=== PATIENT | male | born 1985 | race Two or more races ===

== ENCOUNTER 2017-03-04 23:31 | Emergency (ER) | payer SELFPAY ==
[2017-03-05] MEDS ORDERED: IBUPROFEN 600 MG TABLET PO ONE (00:13)
--- NOTE | 2017-03-05 00:47 | RADIOLOGY REPORT (SQ) ---
EXAM DESCRIPTION: CHEST PA/LAT CLINICAL HISTORY: 31 years, Male, cough and pain COMPARISON: None. NUMBER OF VIEWS: 2 LIMITATIONS: None. FINDINGS: Moderate airspace patchiness of the left lower lobe, normal lung volume, normal cardiac silhouette, and intact bony thorax. IMPRESSION: Moderate left lower lobar pneumonia. 2011 [employer]- All Rights Reserved
[2017-03-05] MEDS ORDERED: HYDROCODONE/ACETAMINOPHEN 5-325 MG (6 TAB/ER DISP) PO PRN (02:33)
[2017-03-05] MEDS ORDERED: DOXYCYCLINE HYCLATE 100 MG TABLET PO ONE (02:34)
[2017-03-05] MEDS ORDERED: HYDROCODONE/ACETAMINOPHEN 5-325 MG TABLET PO ONE (02:34)
--- NOTE | 2017-03-05 03:01 | ER Document Report ---
ED General - General Chief Complaint: Chest Wall Pain Stated Complaint: FLU LIKE SYMPTOMS Time Seen by Provider: 03/05/17 02:26 Notes: Patient is a 31-year-old male who comes emergency department for chief complaint of nonproductive cough, fever/chills, painful cough. He states he hurts over his right lower ribs when he coughs. He states that he has been sick for 2 weeks, had an upper respiratory virus, states that over the past 2 days he has worsened with his symptoms. No obvious sick contacts. He does not smoke, he does not take any daily medications, he denies any past medical history. TRAVEL OUTSIDE OF THE [place] IN LAST 30 DAYS: No - Related Data Allergies/Adverse Reactions: No Known Allergies Allergy (Unverified 03/05/17 03:04) Past Medical History - General Information source: Patient - Social History Smoking Status: Never Smoker Frequency of alcohol use: None Drug Abuse: None Lives with: Family Family History: Reviewed & Not Pertinent - Medical History Medical History: Negative Surgical Hx: Negative - Immunizations Immunizations up to date: Yes Hx Diphtheria, Pertussis, Tetanus Vaccination: Yes Review of Systems - Review of Systems Constitutional: See HPI EENT: See HPI Cardiovascular: No symptoms reported Respiratory: See HPI Gastrointestinal: No symptoms reported Genitourinary: No symptoms reported Male Genitourinary: No symptoms reported Musculoskeletal: See HPI Skin: No symptoms reported Hematologic/Lymphatic: No symptoms reported Neurological/Psychological: No symptoms reported Physical Exam - Vital signs Vitals: Temp Pulse Resp BP Pulse Ox 102.6 F H 111 H 22 H 147/98 H 96 03/05/17 00:10 03/05/17 00:10 03/05/17 00:10 03/05/17 00:10 03/05/17 00:10 Interpretation: Normal - General General appearance: Appears well, Alert In distress: None - Patient is alert and well-appearing except when he coughs he appears to be in some pain - HEENT Head: Normocephalic, Atraumatic Eyes: Normal Pupils: PERRL - Respiratory Respiratory status: No respiratory distress. No: Respiratory distress, Labored , Retractions, Tachypnea Chest status: Tender - Tender over the right anterior ribs generally, nonspecific, no ecchymosis or crepitus Breath sounds: Nonproductive cough. No: Decreased air movement, Productive cough, Rales, Rhonchi, Stridor, Wheezing Chest palpation: Normal - Cardiovascular Rhythm: Regular Heart sounds: Normal auscultation Murmur: No - Abdominal Inspection: Normal Distension: No distension Bowel sounds: Normal Tenderness: Nontender Organomegaly: No organomegaly - Back Back: Normal, Nontender - Extremities General upper extremity: Normal inspection, Nontender, Normal color, Normal ROM , Normal temperature General lower extremity: Normal inspection, Nontender, Normal color, Normal ROM , Normal temperature, Normal weight bearing. No: Stefano's sign - Neurological Neuro grossly intact: Yes Cognition: Normal Orientation: AAOx4 [place] Coma Scale Eye Opening: Spontaneous [place] Coma Scale Verbal: Oriented [place] Coma Scale Motor: Obeys Commands [place] Coma Scale Total: 15 Speech: Normal Motor strength normal: LUE, RUE, LLE, RLE Sensory: Normal - Psychological Associated symptoms: Normal affect, Normal mood - Skin Skin Temperature: Warm Skin Moisture: Dry Skin Color: Normal Course - Re-evaluation Re-evalutation: Chest x-ray does not show rib fracture, pneumothorax, or free air. Chest x-ray does indicate infiltrate consistent with pneumonia. Patient does have a clinical history sounding like he had a virus and has developed pneumonia. Vital signs rechecked and unremarkable. Patient with no respiratory distress or hypoxia. Treating with doxycycline, provided with work release, discussed return precautions in detail. Patient states understanding and agreement. - Vital Signs Vital signs: Temp Pulse Resp BP Pulse Ox 99.4 F 99 22 H 124/73 96 03/05/17 03:08 03/05/17 03:08 03/05/17 00:10 03/05/17 03:08 03/05/17 03:08 Discharge - Discharge Clinical Impression: Cough Fever Qualifiers: Fever type: unspecified Qualified Code(s): R50.9 - Fever, unspecified Pneumonia Qualifiers: Pneumonia type: due to unspecified organism Laterality: left Lung location: unspecified part of lung Qualified Code(s): J18.9 - Pneumonia, unspecified organism Condition: Stable Disposition: HOME, SELF-CARE Additional Instructions: Your evaluation and x-ray indicating pneumonia. Take doxycycline antibiotic as prescribed, take Tylenol or ibuprofen for fever, take the given medication to go home with tonight if you need to help you sleep. Drink plenty of fluids and rest. Follow-up with primary care. Return for any concerning or worsening symptoms including difficulty breathing. Prescriptions: Doxycycline Hyclate 100 mg PO BID #14 capsule Forms: Return to Work
[2017-03-05] MEDS ORDERED: IBUPROFEN 800 MG TABLET ONE (03:04)
[2017-03-05 03:12] VITALS: BP 124/73
== END 2017-03-05 03:31 | disposition home or self-care (01) ==
LOC: ER 23:31
DX: J18.9 Pneumonia, unspecified organism (principal); R07.89 Other chest pain; R50.9 Fever, unspecified
CPT/HCPCS: 71046; 99284